=== PATIENT | male | born 1980 | race Caucasian/White ===

== ENCOUNTER 2019-07-24 02:49 | Emergency (ER) | payer SELFPAY ==
[~2019-07-24] VITALS: Ht 193 cm; Wt 78.0 kg
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
--- NOTE | 2019-07-24 03:04 | NUR ---
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
--- NOTE | 2019-07-24 03:09 | NUR ---
COLLECTED PERSONAL BELONGINGS FOR SAFE KEEPING, SECURED ROOM FOR SAFETY.
[2019-07-24 03:20] LABS: BASOPHILS # (AUTO) 0.04 x10^3/uL (0-0.1); BASOPHILS % (AUTO) 1 % (0-1); EOSINOPHILS # (AUTO) 0.09 x10^3/uL (0-0.4); EOSINOPHILS % (AUTO) 1 % (1-7); LYMPHOCYTES # (AUTO) 1.09 x10^3/uL (1-3.4); LYMPHOCYTES % (AUTO) 14 % (22-44); MD NO; MEAN CORPUSCULAR HGB CONC 32.4 g/dL (33.2-36.2); MEAN CORPUSCULAR VOLUME 86.2 fL (81-97); MEAN PLATELET VOLUME 8.4 fL (7.4-10.4); MONOCYTES # (AUTO) 0.38 x10^3/uL (0.2-0.8); MONOCYTES % (AUTO) 5 % (2-9); NEUTROPHILS # (AUTO) 6.13 x10^3/uL (1.8-6.8); NEUTROPHILS % (AUTO) 79 % (42-75); PLATELET COUNT 344 x10^3/uL (130-400); RED BLOOD COUNT 4.91 x10^6/uL (4.38-5.82); RED CELL DISTRIBUTION WIDTH 14.1 % (9.4-14.8)
[2019-07-24 03:26] LABS: ALBUMIN 4.2 g/dL (3.4-5.0); ANION GAP 5 mmol/L (5-15); CALCIUM 9.2 mg/dL (8.5-10.1); CHLORIDE 109 mmol/L (98-107); CREATININE 1.18 mg/dL (0.7-1.3)
[2019-07-24 03:28] LABS: SALICYLATE LEVEL < 1.7 mg/dL (2.8-20.0)
--- NOTE | 2019-07-24 03:30 | NUR ---
URINE SAMPLE COLLECTED.
--- NOTE | 2019-07-24 03:40 | NUR ---
SITTER OUTSIDE ROOM FOR SAFETY MONITORING.
[2019-07-24] MEDS ORDERED: SERT25TA PO (03:43)
[2019-07-24] MEDS ORDERED: MIRT15TA3 PO (03:43)
[2019-07-24] MEDS ORDERED: QUET25TA5 PO (03:43)
[2019-07-24] MEDS ORDERED: QUETIAPINE 25MG TABLET ONE (03:52)
[2019-07-24 03:54] LABS: AMPHETAMINE SCREEN, URINE Positive (Negative); BARBITURATE SCREEN, URINE Negative (Negative); BENZODIAZEPINE SCREEN, URINE Negative (Negative); CANNABINOID SCREEN, URINE Positive (Negative); COCAINE SCREEN, URINE Negative (Negative); METHADONE SCREEN, URINE Negative (Negative); OPIATE SCREEN, URINE Negative (Negative)
--- NOTE | 2019-07-24 04:05 | NUR ---
MEDICATED PER MAR, PT SITTING AT [facility] OF [facility]. SAFETY PRECAUTIONS IN PLACE, SITTER AT DOORWAY FOR CONTINOUS SAFETY WATCH.
--- NOTE | 2019-07-24 04:23 | NUR ---
SLEEPING ON GURNEY, EVEN UNLABORED RESPIRATIONS, SAFETY FALL PRECAUTIONS IN PLACE. SITTER AT DOORWAY FOR MONITORING.
--- NOTE | 2019-07-24 05:14 | NUR ---
SLEEPING ON GURNEY, NAD NOTED, EVEN UNLABORED RESPIRATIONS. SITTER OUTSIDE ROOM.
--- NOTE | 2019-07-24 06:25 | NUR ---
PT SLEEPING ON GURNEY, AROUSABLE TO VERBAL COMMAND, EVEN UNLABORED RESPIRATIONS. SITTER OUTSIDE ROOM.
--- NOTE | 2019-07-24 07:15 | NUR ---
Safety precautions in place.
--- NOTE | 2019-07-24 08:23 | NUR ---
meal provided. Pt states he doesnt hzve intention to harm self or others.
[2019-07-24] MEDS ORDERED: QUETIAPINE 25MG TABLET PO SCH (09:00)
--- NOTE | 2019-07-24 09:14 | NUR ---
Patient sleeping in er [facility]. Sitter at door. Suicide precautions in place.
--- NOTE | 2019-07-24 11:38 | NUR ---
Patient sleeping in er [facility]. Sitter at door. Suicide precautions in place. Pillow provided.
--- NOTE | 2019-07-24 12:27 | NUR ---
THROUGHPUT: [facility].
[2019-07-24 13:01] VITALS: BP 118/70
--- NOTE | 2019-07-24 13:04 | NUR ---
Provider at bedside. Lunch tray provided. Vitals stable. Pt cooperative and calm for now. Sitter at bedside. Suicide precautions in place.
--- NOTE | 2019-07-24 14:00 | NUR ---
THROUGHPUT: PT ACCEPTED AT [facility] BY MERA HARTLEY & DR [place].
--- NOTE | 2019-07-24 14:29 | NUR ---
THROUGHPUT: [facility]SPORT FOR ~1500 TODAY, [facility].
--- NOTE | 2019-07-24 14:39 | NUR ---
DISCHARGE INSTRUCTIONS REVIEWED
== END 2019-07-24 14:41 | disposition home or self-care (01) ==
LOC: ED 03:48
DX: R45.851 Suicidal ideations (principal); F06.2 Psychotic disorder with delusions due to known physiological condition; F22 Delusional disorders; F17.200 Nicotine dependence, unspecified, uncomplicated
CPT/HCPCS: 36415; 80048; 80307; 82040; 85025; 99284